=== PATIENT | female | born 1940 | race Two or more races ===

== ENCOUNTER 2023-06-27 09:18 | Emergency (ER) | payer OTHER ==
[~2023-06-27] VITALS: Ht 157.5 cm; Wt 82.6 kg
[2023-06-27] MEDS ORDERED: ROSUVASTATIN CA40 MG PO (09:51)
[2023-06-27] MEDS ORDERED: SYNTHROID200 MCG PO (09:51)
[2023-06-27] MEDS ORDERED: LOSARTAN POTASS50 MG PO (09:53)
[2023-06-27] MEDS ORDERED: VERAPAMIL ER240 MG PO (09:53)
[2023-06-27] MEDS ORDERED: OMEPRAZOLE MAGN20 MG (09:54)
[2023-06-27] MEDS ORDERED: HYDROCHLOROTHIA50 MG PO (09:54)
[2023-06-27] MEDS ORDERED: PEPCID AC10 MG (09:54)
[2023-06-27] MEDS ORDERED: AZITHROMYCIN 500 MG TABLET PO ONE (10:15)
[2023-06-27 11:08] LABS: HEMATOCRIT 39.8 % (36.0-45.00); HEMOGLOBIN 13.3 g/dL (12.0-15.00); MEAN CELL VOLUME 91.7 fL (80.00-100.00); MEAN CORPUSCULAR HEMOGLOBIN 30.7 pg (27.00-32.0); MEAN CORPUSCULAR HGB CONC 33.5 g/dl (32.0-36.0); PLATELET COUNT 263 K/uL (150-450); RED BLOOD COUNT 4.34 M/uL (4.00-6.00); RED CELL DISTRIBUTION WIDTH 13.9 % (11.5-14.5)
[2023-06-27] MEDS ORDERED: ZITHROMAX500 MG PO (11:39)
[2023-06-27] MEDS ORDERED: TUSNEL LIQUID178 ML PO (11:39)
== END 2023-06-27 12:14 | disposition home or self-care (01) ==
LOC: ER 09:19
PROVIDERS: General Practice
DX: R05.8 Other specified cough (principal)

== ENCOUNTER 2024-09-19 11:29 | Emergency (ER) | payer OTHER ==
[~2024-09-19] VITALS: Ht 157.5 cm; Wt 81.6 kg
[~2024-09-19 11:29] MED LIST: HYDROCHLOROTHIA50 MG PO; LOSARTAN POTASS50 MG PO; OMEPRAZOLE MAGN20 MG; PEPCID AC10 MG; ROSUVASTATIN CA40 MG PO; SYNTHROID200 MCG PO; TUSNEL LIQUID178 ML PO; VERAPAMIL ER240 MG PO; ZITHROMAX500 MG PO
[2024-09-19] MEDS ORDERED: ORPHENADRINE CITRATE 30 MG/ML AMPUL IM ONE (13:00)
[2024-09-19] MEDS ORDERED: KETOROLAC TROMETHAMINE 60 MG VIAL IM ONE ×2 (13:00→13:25)
[2024-09-19] MEDS ORDERED: ORPHENADRINE CITRATE 30 MG/ML AMPUL ONE (13:25)
[2024-09-19 13:49] LABS: BASO % 0.2 % (0.1-1.2); EOS # 0.03 (0.04-0.54); EOS % 0.3 % (0.7-7.0); HEMATOCRIT 42.6 % (34.1-44.9); HEMOGLOBIN 14.1 g/dL (11.2-15.7); LYMPH # 0.93 (1.18-3.74); LYMPH % 9.9 % (19.3-53.1); MEAN CORPUSCULAR HEMOGLOBIN 30.3 pg (25.6-32.2); MONO # 0.21 (0.24-0.82); MONO % 2.2 % (4.7-12.5); NEUT # 8.17 (1.56-6.13); NEUT % 87.2 % (34.0-71.1); PLATELET COUNT 251 K/uL (163-369); RED BLOOD COUNT 4.66 M/uL (3.93-5.22); RED CELL DISTRIBUTION WIDTH 13.2 % (11.6-14.4)
[2024-09-19 13:52] LABS: ERYTHROCYTE SEDIMENTATION RATE 17 mm/hr (0-30)
[2024-09-19 14:08] LABS: CALCIUM 9.7 mg/dL (8.5-10.1); CREATININE SERUM 1.64 mg/dL (0.55-1.02); GFR 29.92; POTASSIUM 4.79 mEq/L (3.5-5.1)
== END 2024-09-19 17:44 | disposition home or self-care (01) ==
LOC: ER 11:29
PROVIDERS: Emergency Medicine
DX: M25.461 Effusion, right knee (principal); I10 Essential (primary) hypertension; E03.8 Other specified hypothyroidism
CPT/HCPCS: 29505; 36415; 73560; 96372; 99283; J1885; J2360